=== PATIENT | female | born 1975 | race Caucasian/White ===

== ENCOUNTER → 2016-12-06 | Outpatient (CLI) | payer OTHER ==
--- NOTE | 2016-12-06 13:42 | Diagnostic Imaging Report ---
PROCEDURE: US right lower extremity venous. INDICATION: Right calf pain. COMPARISON: None. TECHNIQUE: The right lower extremity deep venous system was interrogated from the common femoral vein through the popliteal vein. These images were assessed for grayscale appearance, color and spectral Doppler blood flow, compression, and augmentation. FINDINGS: There is no evidence of intraluminal filling defect. Normal compression and augmentation is noted throughout. Incidental note of superficial thrombophlebitis within the lesser saphenous vein from the knee to the ankle, likely accounting for patient's symptoms. IMPRESSION: 1. No sonographic evidence of deep venous thrombosis in the right lower extremity. 2. There is superficial thrombophlebitis within the right calf, as described. Results were called to the ordering physician at time of exam by the lab animal technologist. Dictated by: Dictated on workstation # [id number]
== END ==
LOC: RAD 13:05
PROVIDERS: ATTEND Nurse Practitioner Family
DX: I82.811 Embolism and thrombosis of superficial veins of right lower extremity (principal)

== ENCOUNTER → 2018-01-04 | Outpatient (CLI) | payer OTHER ==
--- NOTE | 2018-01-04 13:40 | Diagnostic Imaging Report ---
INDICATION: Routine screening. INDICATION: Routine screening. No prior studies are available for comparison. This a baseline study. 2-D and 3-D bilateral screening mammography was performed with CAD. The current study was also evaluated with a Computer Aided Detection (CAD) system. Scattered fibroglandular densities are identified bilaterally. No dominant mass or malignant appearing microcalcifications are seen. The axilla are unremarkable. IMPRESSION: BI-RADS category one No mammographic features suspicious for malignancy are identified. ACR BI-RADS Category 1: Negative. Result letter will be mailed to the patient. Note: At least 10% of breast cancer is not imaged by mammography. Dictated by: Dictated on workstation # [id number]
== END ==
LOC: RAD 10:26
PROVIDERS: ATTEND Nurse Practitioner Family
DX: Z12.31 Encounter for screening mammogram for malignant neoplasm of breast (principal)
CPT/HCPCS: 77067

== ENCOUNTER → 2019-07-05 | Outpatient (CLI) | payer OTHER ==
--- NOTE | 2019-07-08 09:42 | Diagnostic Imaging Report ---
INDICATION: Routine screening. Comparison is made with prior mammogram 01/04/2018. 2-D and 3-D bilateral screening mammography was performed with CAD. The current study was also evaluated with a Computer Aided Detection (CAD) system. 3-D tomosynthesis was also performed and reviewed. Scattered fibroglandular densities are identified bilaterally. The parenchymal pattern is stable. No mass or malignant appearing microcalcifications are seen. Axillae are unremarkable. IMPRESSION: No mammographic features suspicious for malignancy are identified. ACR BI-RADS Category 1: Negative. Result letter will be mailed to the patient. Note: At least 10% of breast cancer is not imaged by mammography. Dictated by: Dictated on workstation # [id number]
== END ==
LOC: RAD 10:34
PROVIDERS: ATTEND Obstetrics & Gynecology
DX: Z12.31 Encounter for screening mammogram for malignant neoplasm of breast (principal)
CPT/HCPCS: 77067

== ENCOUNTER 2020-10-22 10:44 | Outpatient (CLI) | payer OTHER ==
[~2020-10-22] VITALS: Ht 180.3 cm; Wt 110.0 kg
[2020-10-22] MEDS ORDERED: RIVA20TA PO (15:23)
[2020-10-22] MEDS ORDERED: CITA40TA19 PO (15:23)
== END 2020-10-22 15:26 | disposition home or self-care (01) ==
LOC: PREOP 10:44
PROVIDERS: ATTEND Obstetrics & Gynecology
DX: Z01.818 Encounter for other preprocedural examination (principal)

== ENCOUNTER 2020-10-30 10:51 | Day surgery (SDC) | payer OTHER ==
[2020-10-30] VITALS (12 sets, daily range): BP systolic 105–126; BP diastolic 64–84
[~2020-10-30] VITALS: Ht 180.3 cm; Wt 110.0 kg
[~2020-10-30 10:51] MED LIST: CITA40TA19 PO; RIVA20TA PO
[2020-10-30] MEDS ORDERED: ceFAZolin INJECTION 1,000 MG in WATER (STERILE) FOR INJECTION 10 ML IV ONE (11:15)
[2020-10-30] MEDS: LACTATED RINGERS 1,000 ML IV PRN ×2 (11:22→14:32)
[2020-10-30 11:30] LABS: BASOPHILS # (AUTO) 0.1 10^3/uL (0.0-0.1); BASOPHILS % (AUTO) 1 % (0-10); EOSINOPHILS # (AUTO) 0.1 10^3/uL (0.0-0.3); EOSINOPHILS % (AUTO) 1 % (0-10); HEMATOCRIT 46 % (35-52); HEMOGLOBIN 15.2 g/dL (11.5-16.0); LYMPHOCYTES # (AUTO) 2.1 10^3/uL (1.0-4.0); LYMPHOCYTES % (AUTO) 30 % (12-44); MEAN CORPUSCULAR HEMOGLOBIN 32 pg (25-34); MEAN CORPUSCULAR HGB CONC 33 g/dL (32-36); MEAN CORPUSCULAR VOLUME 96 fL (80-99); MEAN PLATELET VOLUME 11.3 fL (9.0-12.2); MONOCYTES # (AUTO) 0.5 10^3/uL (0.0-1.0); MONOCYTES % (AUTO) 7 % (0-12); NEUTROPHILS # (AUTO) 4.2 10^3/uL (1.8-7.8); NEUTROPHILS % (AUTO) 61 % (42-75); PLATELET COUNT 233 10^3/uL (130-400); WHITE BLOOD COUNT 6.9 10^3/uL (4.3-11.0)
--- NOTE | 2020-10-30 11:31 | Progress Note-Pre Operative ---
Pre-Operative Progress Note H&P Reviewed The H&P was reviewed, patient examined and no changes noted. Date Seen by Provider: Oct 30, 2020 Time Seen by Provider: 13:00 Date H&P Reviewed: Oct 30, 2020 Time H&P Reviewed: 13:00 Pre-Operative Diagnosis: Menorrhagia/chronic pelvic pain/dysmenorrhea JOEL ISAAC MD Oct 30, 2020 11:31
--- NOTE | 2020-10-30 11:32 | Progress Note-Post Operative ---
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
[2020-10-30] MEDS ORDERED: OXYC1TAB87 PO (11:34)
[2020-10-30] MEDS ORDERED: IBUP-1780 PO (11:34)
--- NOTE | 2020-10-30 11:35 | Discharge Inst-Surgical ---
Discharge Inst-Surgical Depart Medication/Instructions New, Converted or Re-Newed RX: RX on Chart Consults/Follow Up Patient Instructions: As directed Orders & Referrals Follow Up Appt: Call to make follow up appt. for patient in 1 week for suture removal. Activity: Rest for 24 hours, than as tolerated. Wound Care: May remove Band-Aid tomorrow. Replace as desired. Keep incisions clean and dry. Wash daily with soap and water. Please call in RX to patient pharmacy. Diet: As tolerated May shower or tub bathe as desired. No driving for 24 hours, no alcoholic beverages for 24 hours, and nothing per vagina (no tampons, douching, or intercourse) for 2 weeks. Patient to return to the clinic as soon as possible for: Temperature greater than 101F, Severe Pain, Foul discharge from incision or vagina, Excessive Bleeding (more than a period). Activity Activity as Tolerated: No Diet Discharge Diet: No Restrictions JOEL ISAAC MD Oct 30, 2020 11:35
[2020-10-30] MEDS ORDERED: SEVOFLURANE (ULTANE) 15 ML INHAL SOLN ONE ×4 (11:37→15:17)
[2020-10-30] MEDS ORDERED: LIDOCAINE PF 2% 5 ML (XYLOCAINE) VIAL ONE (11:37)
[2020-10-30] MEDS ORDERED: proPOfol 200 MG/20 ML (DIPRIVAN) VIAL IV ONE ×2 (11:37→14:54)
[2020-10-30] MEDS ORDERED: ROCURONIUM 10 MG/ML 5 ML SYRINGE IV ONE (11:37)
[2020-10-30] MEDS ORDERED: MIDAZOLAM 2 MG/2 ML (VERSED) VIAL ONE (11:38)
[2020-10-30] MEDS ORDERED: fentaNYL INJ 100 MCG/2 ML AMP ONE (11:38)
[2020-10-30] MEDS ORDERED: fentaNYL INJ 100 MCG/2 ML AMP IVP PRN (11:45)
[2020-10-30] MEDS ORDERED: KETOROLAC 30 MG/ML VIAL IVP ONE (11:45)
[2020-10-30] MEDS ORDERED: ONDANSETRON 4 MG/2 ML (SDV) Z0FRAN IVP PRN ×2 (11:45→15:30)
[2020-10-30] MEDS ORDERED: oxyCODONE/APAP 5/325MG (PERCOCET 5) TABLET PO PRN (11:45)
[2020-10-30] MEDS ORDERED: D5 LR IV SOLUTION 1,000 ML IV SCH (11:45)
[2020-10-30] MEDS ORDERED: LIDOCAINE/EPI 1%-1:100,000 (XYLOCAINE) 20ML ONE ×2 (12:36→12:44)
[2020-10-30] MEDS ORDERED: ONDANSETRON 4 MG/2 ML (SDV) Z0FRAN ONE (13:54)
[2020-10-30] MEDS ORDERED: HYDROmorphone 2 MG/ML VIAL (DILAUDID) ONE ×2 (14:54→15:38)
[2020-10-30] MEDS ORDERED: KETOROLAC 30 MG/ML VIAL ONE (15:00)
[2020-10-30] MEDS ORDERED: NEOSTIGMINE 3 MG/3 ML VIAL ONE (15:17)
[2020-10-30] MEDS ORDERED: GLYCOPYRROLATE 0.2 MG/ML (ROBINUL) 2 ML VIAL ONE (15:17)
[2020-10-30] MEDS ORDERED: HYDROmorphone 2 MG/ML VIAL (DILAUDID) IV ONE (15:30)
--- NOTE | 2020-10-30 15:36 | Anesthesia-General Post-Op ---
General Patient Condition Mental Status/LOC: Same as Preop Cardiovascular: Satisfactory Nausea/Vomiting: Absent Respiratory: Satisfactory Pain: Controlled Complications: Absent Post Op Complications Complications None Follow Up Care/Instructions Patient Instructions None needed. Anesthesia/Patient Condition Patient Condition Patient is doing well, no complaints, stable vital signs, no apparent adverse anesthesia problems. No complications reported per nursing. D/C home per [facility] [place] Criteria: Yes SOLANGE HOROWITZ CRNA Oct 30, 2020 15:36
--- NOTE | 2020-10-30 23:29 | OPERATIVE REPORT ---
DATE OF SERVICE: 10/30/2020 PREOPERATIVE DIAGNOSES: Pelvic pain, dysmenorrhea and menorrhagia. POSTOPERATIVE DIAGNOSES: Pelvic pain, dysmenorrhea and menorrhagia with extensive pelvic adhesions and with endometrial polyp. OPERATIVE PROCEDURE: Hysteroscopy with directed biopsy and D and C, followed by endometrial ablation using the rollerball followed by laparoscopy for extensive adhesiolysis and bilateral salpingectomies. OPERATIVE DESCRIPTION: With the patient in supine position under satisfactory general anesthesia, she was repositioned in dorsal lithotomy position in the [facility] and prepped and draped in the usual fashion for abdominal and vaginal surgery. Urinary bladder was drained with a straight catheter. Weighted speculum placed in posterior fornix of vagina, cervix exposed and grasped anteriorly with single tooth tenaculum. Uterus sounded to 9 cm with uterine sound. The cervix was then serially dilated with Fco dilators to accommodate a hysteroscope, which was introduced and using saline as distending medium, the endometrial cavity was examined. There were several polypoid exophytic lesions protruding from the posterior surface of the uterus, two of these were removed sharply and sent to pathology for permanent section. The endometrial cavity was then sharply curettaged in all 4 quadrants to good uterine cry removing a fairly substantial amount of endometrial appearing tissue, some blood clot and debris. That tissue was sent to pathology as endometrial curettings. The hysteroscope was now replaced with a resectoscope and using the same saline as a distending medium and the power setting at 55 kiser, the endometrial cavity was ablated with the rollerball starting on the anterior surface of the uterus and then extending to the left and lateral sidewalls all the way up to the tubal ostia bilaterally and then the scope was then inverted and the posterior uterine wall and the fundus was ablated with the same instrument. Good thermal effect was noted. Minimal bleeding occurred. The hysteroscope was removed after confirming the destruction of the endometrium well down on to the internal cervical os and up to the tubal ostia bilaterally. A uterine manipulator was now placed, and the bulb filled with 4 mL of air. The tenaculum and speculum were removed and the patient was brought in low dorsal lithotomy position for the laparoscopy. A 5 mm incision was made in the patient's left upper quadrant at [place]'s point. Veress needle was placed through that incision into the abdominal cavity and correct placement confirmed with water drop test. The abdomen was insufflated with 2.4 liters of carbon dioxide and the Veress needle was removed and replaced with a 5 mm Optiview laparoscopic port with the scope there in allowing for direct vision of the placement. The abdominal wall was then transilluminated, and ports of 12 mm were placed infraumbilically and suprapubically through incisions of those sizes. All three port sites were infiltrated with 1% lidocaine with epinephrine prior to incision. With the patient in Trendelenburg allowing the bowel spill out of the pelvis, the uterus was elevated. The upper abdomen was examined and appeared normal. There were extensive adhesions of the sigmoid and of the posterior surface of the uterus to the sigmoid and sigmoid epiploica and most of these were light filmy adhesions. Both tubes were adherent to the ovaries. Both ovaries were adherent to the ovarian fossae bilaterally. Laparoscope was rotated. The appendix was normal vermiform appendix. Laparoscope was brought back to the pelvis. The adhesions of both tubes and ovaries were taken freed carefully to allow for removal of the ovaries and that would likely prevent some of the dysmenorrhea, she was having from all of these adhesions. With the tubes freed, Endo-ANDREA was then placed across the mesosalpinx and fired, a second firing on the right side to allow for separation of the tube from its attachment. It was brought out through the umbilical port. On the left side, the adhesions were taken down once the mesosalpinx was divided with cautery and then a single firing of the Endo-ANDREA across the base of the fallopian tube allow for it to be removed out through the umbilical port. The pelvis was irrigated and examined for hemostasis, which was complete. There was no bleeding from the staple line. No bleeding from the adhesiolysis site. The cul-de-sac was still relatively full with filmy adhesions. These were taken free to free up the sigmoid and the rectosigmoid and with all adhesions free, no remaining pathology, no bleeding, the procedure was terminated. The operative instruments were removed under direct vision. No bleeding was noted. The abdomen was evacuated of insufflating gas in the process of removing the ports. The skin incisions were closed with interrupted sutures of 3-0 nylon, the fascia at the supraumbilical incision was closed with [id number] suture of 2-0 Vicryl. The uterine manipulator bulb was drained, and the instruments removed from the uterus and from the vagina. Speculum replaced in the vagina, cervix examined for hemostasis, which was complete. Sponge and needle counts were correct on completion of procedure. Estimated blood loss was less than 50 mL. The patient tolerated the procedure well and was uneventfully awakened now from her general anesthesia and transferred to recovery room in stable condition with plans for discharge home. Job ID: [id number] DocumentID: [id number] Dictated Date: 10/30/2020 15:05:50 Mail Courier Date: 10/30/2020 23:28:33 Dictated By: JOEL ISAAC MD MTDD
== END 2020-10-30 18:17 ==
LOC: SDC 10:51
PROVIDERS: ATTEND Obstetrics & Gynecology
DX: N92.0 Excessive and frequent menstruation with regular cycle (principal); N83.8 Other noninflammatory disorders of ovary, fallopian tube and broad ligament; N94.6 Dysmenorrhea, unspecified; E66.9 Obesity, unspecified; Z68.33 Body mass index [BMI] 33.0-33.9, adult; Z79.899 Other long term (current) drug therapy; Z86.718 Personal history of other venous thrombosis and embolism; Z87.891 Personal history of nicotine dependence; Z83.3 Family history of diabetes mellitus; Z80.3 Family history of malignant neoplasm of breast
CPT/HCPCS: 36415; 84703; 85025; 87081; 88302; 88305

== ENCOUNTER → 2021-01-01 | Outpatient (CLI) | payer OTHER ==
[~2021-01-01] MED LIST changes: +IBUP-1780 PO; +OXYC1TAB87 PO
--- NOTE | 2021-01-01 09:54 | Diagnostic Imaging Report ---
INDICATION: Elevated liver function tests. PROCEDURE: Ultrasound abdomen complete. TECHNIQUE: Multiple real-time grayscale images were obtained of the abdomen in various projections. There are no prior studies available for comparison. The liver is homogeneous and not enlarged measuring 14.2 cm in length. The liver does seem somewhat more echogenic than usual and this appearance does suggest fatty metamorphosis. There is no focal mass involving the liver and the biliary tree is not abnormally dilated. Spectral color-flow imaging of the portal vein shows the vein is patent. There is no evidence for cholelithiasis or acute cholecystitis and the common bile duct is not dilated. The pancreas, the spleen, the kidneys, the aorta and inferior vena cava are unremarkable for an acute abnormality. There is no mass or free fluid collection evident. IMPRESSION: 1. There is no acute abnormality of the abdomen. 2. The liver is not enlarged but the echogenic appearance of the liver does suggest fatty metamorphosis. Dictated by: Dictated on workstation # [id number]
--- NOTE | 2021-01-05 15:03 | Diagnostic Imaging Report ---
INDICATION: Routine screening. COMPARISON: 07/05/2019 and 01/04/2018. TECHNIQUE: 2D and 3D bilateral screening mammography was performed with CAD. FINDINGS: Both breasts are heterogeneously dense, limiting the sensitivity of mammography. There is an area of increased density in the superior right breast at mid to posterior depth, appearing more prominent than prior mammograms. This appears to be just medial to the nipple line on the CC view. Additional views are recommended. The left breast is unremarkable. No malignant appearing microcalcifications are seen. The axillae are unremarkable. IMPRESSION: Right breast density. Additional views are recommended for further evaluation. ACR BI-RADS Category 0: Incomplete. (Needs additional imaging evaluation). Result letter will be mailed to the patient. Note: At least 10% of breast cancer is not imaged by mammography. Dictated by: Dictated on workstation # [id number]
== END ==
LOC: RAD 09:15
PROVIDERS: ATTEND Internal Medicine
DX: Z12.31 Encounter for screening mammogram for malignant neoplasm of breast (principal); R10.13 Epigastric pain; R79.89 Other specified abnormal findings of blood chemistry
CPT/HCPCS: 76700; 77063; 77067

== ENCOUNTER → 2021-01-13 | Outpatient (CLI) | payer OTHER ==
--- NOTE | 2021-01-13 14:22 | Diagnostic Imaging Report ---
EXAMINATION: Ultrasound right breast limited. INDICATION: Abnormal mammogram. FINDINGS: The screening mammogram performed on 01/01/2021 suggested an area of increased density in the superior right breast at mid to posterior depth. The diagnostic mammogram performed prior to this study failed to show any sign of malignancy in this area. On this exam, there is a 1.3 x 0.6 x 0.7 cm avascular hypoechoic area in the 1 o'clock position of the breast approximately 4 cm from the nipple. There may be 1 or 2 tiny cysts in this region as well. These findings may represent a combination of the cysts and fibroglandular tissue. There is no shadowing or increased vascularity to suggest malignancy. Even so, it may prove worthwhile to have a short-term (6 month) followup mammogram and ultrasound exam for further study. IMPRESSION: There is no evidence of malignancy. Considerations and recommendations as above. ACR BI-RADS Category 3: Probably benign findings. Result letter will be mailed to the patient. Note: At least 10% of breast cancer is not imaged by mammography. Dictated by: Dictated on workstation # [id number]
--- NOTE | 2021-01-13 19:31 | Diagnostic Imaging Report ---
INDICATION: Abnormal screening mammogram. EXAMINATION: Right breast digital diagnostic mammogram with CAD. 3D tomographic images were obtained and reviewed. The current study was also evaluated with a Computer Aided Detection (CAD) system. FINDINGS: The screening mammogram performed on 12/24/2020 noted an area of increased density in the superior right breast at mid posterior depth just medial to the nipple line. The compression views of this area show no underlying abnormality. In reviewing the tomographic views of the screening mammogram there was no clear evidence for a mass. The area of increased density may be related to fibroglandular tissue alone. Even so, would recommend that ultrasound be performed for further study. IMPRESSION: There is no evidence for malignancy. However, ultrasound would be recommended for further study.. ACR BI-RADS Category 0: Incomplete. (Needs additional imaging evaluation). Result letter will be mailed to the patient. Note: At least 10% of breast cancer is not imaged by mammography. Dictated by: Dictated on workstation # [id number]
== END ==
LOC: RAD 13:04
PROVIDERS: ATTEND Internal Medicine
DX: N63.10 Unspecified lump in the right breast, unspecified quadrant (principal)
CPT/HCPCS: 76642; 77065; G0279

== ENCOUNTER → 2021-08-02 | Outpatient (CLI) | payer OTHER ==
--- NOTE | 2021-08-02 13:38 | Diagnostic Imaging Report ---
INDICATION: Six-month followup right breast density. Correlation is made with prior mammogram 01/01/2021 and 07/05/2019. Unilateral right 2-D and 3-D diagnostic mammography was performed with CAD. Right breast is heterogeneously dense, limiting the sensitivity of mammography. Area of density in the upper slightly inner right breast posterior depth appears stable. No underlying mass is identified. No malignant-appearing microcalcifications are seen. Right axilla is unremarkable. IMPRESSION: Stable right mammogram. Even so, sonographic evaluation of the previously noted area in the upper inner right breast is recommended and will be performed today. BI-RADS 0 ACR BI-RADS Category 0: Incomplete. (Needs additional imaging evaluation). Result letter will be mailed to the patient. Note: At least 10% of breast cancer is not imaged by mammography. Dictated by: Dictated on workstation # [id number]
--- NOTE | 2021-08-02 14:19 | Diagnostic Imaging Report ---
INDICATION: Six-month followup of right breast nodule. Comparison is made with diagnostic mammogram earlier same day and prior right breast ultrasound from 01/13/2021. Sonographic interrogation of the upper slightly inner right breast was performed. Previously noted asymmetry at the 1 o'clock location, 4 cm from the nipple is again noted and appears slightly less prominent on today's study. This may represent tiny cluster of cysts. In aggregate this area measures 13 mm x 4 mm x 9 mm compared with 13 mm x 6 cm x 7 mm. No posterior acoustic shadowing or abnormal vascularity is seen. IMPRESSION: Stable probable cluster of cysts at the 1 o'clock location right breast, 4 cm from the nipple. Patient may return to routine annual screening mammography. BI-RADS Category 2 ACR BI-RADS Category 2: Benign findings. Result letter will be mailed to the patient. Note: At least 10% of breast cancer is not imaged by mammography. Dictated by: Dictated on workstation # [id number]
== END ==
LOC: MERGE 07-19 13:45 → RAD 13:05
PROVIDERS: ATTEND Internal Medicine
DX: N60.01 Solitary cyst of right breast (principal)
CPT/HCPCS: 76642; 77065; G0279

== ENCOUNTER → 2022-07-25 | Outpatient (CLI) | payer OTHER ==
--- NOTE | 2022-07-25 11:57 | Diagnostic Imaging Report ---
INDICATION: Routine screening. COMPARISON: 01/01/2021 and 07/05/2019. TECHNIQUE: 2D and 3D bilateral screening mammography was performed with CAD. FINDINGS: Both breasts are heterogeneously dense, limiting the sensitivity of mammography. The parenchymal pattern is stable. No mass or malignant-appearing microcalcifications are seen. The axillae are unremarkable. IMPRESSION: No mammographic features suspicious for malignancy are identified. ACR BI-RADS Category 1: Negative. Result letter will be mailed to the patient. Note: At least 10% of breast cancer is not imaged by mammography. Dictated by: Dictated on workstation # [id number]
== END ==
LOC: RAD 09:01
PROVIDERS: ATTEND Internal Medicine
DX: Z12.31 Encounter for screening mammogram for malignant neoplasm of breast (principal)
CPT/HCPCS: 77063; 77067

== ENCOUNTER → 2022-10-11 | Outpatient (CLI) | payer OTHER ==
--- NOTE | 2022-10-11 17:46 | Diagnostic Imaging Report ---
INDICATION: Pain. Three view of the left elbow performed. No fracture, dislocation or acute articular irregularity. No joint effusion. No loose body. IMPRESSION: Unremarkable 3 view left elbow. Dictated by: Dictated on workstation # [id number]
== END ==
LOC: RAD 17:29
PROVIDERS: ATTEND Internal Medicine
DX: M25.522 Pain in left elbow (principal)
CPT/HCPCS: 73080